=== PATIENT | female | born 1995 | race African-American/Black ===

== ENCOUNTER 2019-07-03 15:30 | Emergency (ER) | payer OTHER ==
[~2019-07-03] VITALS: Ht 172.7 cm; Wt 68.0 kg
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
[2019-07-03] MEDS ORDERED: CYCLOBENZAPRINE5 MG PO ×2 (18:03→18:07)
[2019-07-03] MEDS ORDERED: NAPROSYN500 MG PO ×2 (18:03→18:07)
[2019-07-03 18:09] VITALS: BP 124/72
== END 2019-07-03 18:10 | disposition home or self-care (01) ==
LOC: ER 15:30
DX: S16.1XXA Strain of muscle, fascia and tendon at neck level, initial encounter (principal); M79.651 Pain in right thigh; M54.6 Pain in thoracic spine; V89.2XXA Person injured in unspecified motor-vehicle accident, traffic, initial encounter; Y93.89 Activity, other specified; Y92.89 Other specified places as the place of occurrence of the external cause; Y99.8 Other external cause status